=== PATIENT | female | born 1960 | race Caucasian/White ===

== ENCOUNTER 2019-11-09 12:59 | Emergency (ER) | payer BC, OTHER ==
[2019-11-09 13:14] VITALS: BP 142/82; PULSE 90; RESP 18; TEMP 99.1
[2019-11-09] MEDS ORDERED: IBUPROFEN 600 MG TAB PO STA (13:29)
--- NOTE | 2019-11-09 13:31 | ED ---
General Adult HPI - General Chief complaint: Extremity Injury, Upper Stated complaint: Left Arm Injury Time Seen by Provider: 11/09/19 13:25 Source: patient, RN notes reviewed Mode of arrival: ambulatory Limitations: no limitations - History of Present Illness Initial comments: 59-year-old female presents to the emergency department for left wrist pain. Patient states she was walking backwards yesterday when she tripped over a toy truck and fell onto her left wrist. States she has pain with movement of the left wrist. States it is swollen. States she has tried keeping it on ice but it does not seem to be helping. Patient denies any other injuries. She did not hit her head. Denies numbness or tingling in the hand.Patient has no other comp laints at this time including shortness of breath, chest pain, abdominal pain, nausea or vomiting, headache, or visual changes. - Related Data Allergies Allergy/AdvReac Type Severity Reaction Status Date / Time No Known Allergies Allergy Verified 11/09/19 13:14 Review of Systems ROS Statement: Those systems with pertinent positive or pertinent negative responses have been documented in the HPI. ROS Other: All systems not noted in ROS Statement are negative. Past Medical History Past Medical History: No Reported History History of Any Multi-Drug Resistant Organisms: None Reported Past Surgical History: No Surgical Hx Reported Past Psychological History: No Psychological Hx Reported Smoking Status: Never smoker Past Alcohol Use History: None Reported Past Drug Use History: None Reported General Exam Limitations: no limitations General appearance: alert, in no apparent distress Head exam: Present: atraumatic, normocephalic, normal inspection Eye exam: Present: normal appearance, PERRL, EOMI. Absent: scleral icterus, conjunctival injection ENT exam: Present: normal exam, mucous membranes moist Neck exam: Present: normal inspection. Absent: tenderness, meningismus, lymphadenopathy Respiratory exam: Present: normal lung sounds bilaterally. Absent: respiratory distress, wheezes, rales, rhonchi, stridor Cardiovascular Exam: Present: regular rate, normal rhythm, normal heart sounds. Absent: systolic murmur, diastolic murmur, rubs, gallop, clicks GI/Abdominal exam: Present: soft, normal bowel sounds. Absent: distended, tenderness, guarding, rebound, rigid Extremities exam: Present: normal capillary refill (Capillary refill less than 2 seconds in the left hand, radial pulse 2+.), joint swelling (Mild edema noted of the left wrist.), other (Sensation intact left upper extremity). Absent: normal inspection, full ROM (Patient has limited flex and and extension of the left wrist secondary to pain however mechanisms are intact.), tenderness, pedal edema, calf tenderness Neurological exam: Present: alert Course Vital Signs 11/09/19 13:11 Temperature 99.1 F Pulse Rate 90 Respiratory 18 Rate Blood Pressure 142/82 O2 Sat by Pulse 96 Oximetry Medical Decision Making - Medical Decision Making X-ray of the left wrist shows impacted distal radial fracture with chip fracture of the ulnar styloid. Could not exclude a hairline fracture of the scaphoid. Upon review of the films do not think there is any benefit in trying to reduce this to the emergency room. Patient was placed in a volar wrist sprain and will follow up with orthopedics. Referral given. Patient will be given Tylenol 3 for pain and will take Motrin as well. She'll return here for any worsening symptoms. Discussed twice therapy. Disposition Clinical Impression: Wrist fracture, left Disposition: HOME SELF-CARE Condition: Good Instructions (If sedation given, give patient instructions): Wrist Fracture in Adults (ED) Additional Instructions: Please take Motrin for pain. If pain is severe take Tylenol 3. Follow up with orthopedics on Sunday by calling for an appointment. Return here to the emergency room for any worsening symptoms. Is patient prescribed a controlled substance at d/c from ED?: No Referrals: Jimbo Palma DO [Primary Care Provider] - 1-2 days Edenilson Mancilla MD [Medical Doctor] - 1-2 days Time of Disposition: 14:33
--- NOTE | 2019-11-09 14:05 | XR ---
EXAMINATION TYPE: XR wrist complete LT DATE OF EXAM: 11/09/2019 COMPARISON: NONE HISTORY: Pain TECHNIQUE: Four views submitted. FINDINGS: There is diffuse osteopenia. There is an impacted fracture of the distal radius and chip fracture of the ulnar styloid. Could not exclude a hairline fracture of the scaphoid. IMPRESSION: 1. Impacted distal radial fracture 2. Chip fracture ulnar styloid. 3. Cannot exclude a hairline fracture of the scaphoid
[2019-11-09] MEDS ORDERED: ACET/COD 300 MG/30 MG STARTER PACK 6 TAB BTL PO STA (14:34)
== END 2019-11-09 15:06 | disposition home or self-care (01) ==
LOC: EC 12:59
DX: S52.502A Unspecified fracture of the lower end of left radius, initial encounter for closed fracture (principal); S52.612A Displaced fracture of left ulna styloid process, initial encounter for closed fracture; W01.0XXA Fall on same level from slipping, tripping and stumbling without subsequent striking against object, initial encounter; Y92.009 Unspecified place in unspecified non-institutional (private) residence as the place of occurrence of the external cause
CPT/HCPCS: 99283

== ENCOUNTER → 2019-11-12 | Outpatient (CLI) | payer SELFPAY ==
--- NOTE | 2019-11-12 13:29 | CT ---
EXAMINATION TYPE: CT wrist LT wo con DATE OF EXAM: 11/12/2019 COMPARISON: 11/09/2019 HISTORY: Left radius fracture. CT DLP: 229 mGycm Automated exposure control for dose reduction was used. CONTRAST: None TECHNIQUE: Axial images 3 mm thick sections. Reconstructed images in orthogonal planes. Three-D recon structed images are reviewed on the computer. FINDINGS: There is a comminuted fracture of the distal metaphyseal radius. There is a longitudinal segment exte nding through the articular surface. Ulnar styloid avulsion is noted No additional fractures are evident. Joint spaces are preserved. There is soft tissue prominence. IMPRESSION: 1. COMMINUTED FRACTURE DISTAL METAPHYSEAL RADIUS WITH INTRA-ARTICULAR EXTENSION. 2. ULNAR AVULSION.
== END | disposition home or self-care (01) ==
LOC: RADCTMAIN 12:28
PROVIDERS: ATTEND Orthopaedic Surgery
DX: S59.292A Other physeal fracture of lower end of radius, left arm, initial encounter for closed fracture (principal); S58.1 Traumatic amputation at level between elbow and wrist

== ENCOUNTER → 2021-05-05 | Outpatient (CLI) | payer OTHER ==
--- NOTE | 2021-05-05 10:10 | US ---
EXAMINATION TYPE: US abdomen complete DATE OF EXAM: 05/05/2021 COMPARISON: NONE CLINICAL HISTORY: N92.4 Excessive bleeding in premenopausal period. No symptoms EXAM MEASUREMENTS: Liver Length: 16.1 cm Gallbladder Wall: 0.2 cm CBD: 0.4 cm Spleen: 10.8 cm Right Kidney: 12.4 x 5.1 x 6.1 cm Left Kidney: 12.5 x 5.6 x 4.9 cm Pancreas: visualized portions wnl, limited by overlying midline bowel gas Liver: heterogeneous, increased attenuation, decreased visualization of vessels suggestive of fatty infiltrate Gallbladder: wnl Evidence for sonographic Johnson's sign: no CBD: visualized portions wnl, limited by overlying bowel gas Spleen: wnl Right Kidney: wnl Left Kidney: 1.4cm cyst lateral mid pole Upper IVC: wnl Abd Aorta: wnl The intrahepatic portion of the IVC and proximal abdominal aorta are within normal limits. There is no evidence of cholelithiasis. Common bile duct is unremarkable. The visualized portions of the bustamante creas are homogenous. The spleen is unremarkable. Kidneys are symmetric and free of hydronephrosis. IMPRESSION: 1. Hepatic steatosis. 2. Simple cyst left kidney.
--- NOTE | 2021-05-05 10:21 | US ---
EXAMINATION TYPE: US pelvic complete DATE OF EXAM: 05/05/2021 COMPARISON: NONE CLINICAL HISTORY: 61-year-old female N92.4 Excessive bleeding in premenopausal period. Post menopausa l bleeding, 4, para 3, miscarriage 1, history of D&C TECHNIQUE: Transabdominal sonographic images of the pelvis were acquired. Transvaginal sonographic i mages were medically necessary to better assess the following anatomy: endometrium and ovaries Date of LMP: 9 years ago FINDINGS: EXAM MEASUREMENTS: Uterus: 8.3 x 4.5 x 5.5 cm Endometrial Stripe: 1.1 cm Right Ovary: not seen Left Ovary: not seen 1. Uterus: Anteverted. The myometrium is heterogeneous with multiple hypoechoic lesions with largest measuring 1.4 x 1.0 x 1.2cm suggesting focal fibroids 2. Endometrium: thickening, cystic change seen within the uterine cavity. 3. Right Ovary: not seen 4. Left Ovary: not seen 5. Bilateral Adnexa: wnl 6. Posterior cul-de-sac: wnl IMPRESSION: 1. Thickened endometrial stripe up to 1.1 cm, abnormal in a postmenopausal female with bleeding. The stripe has a complex appearing with cystic change. Differential considerations include endometrial hy perplasia, polyps, or endometrial carcinoma. Further BIOCHEMISTRY TEACHER evaluation is recommended. 2. Scattered uterine fibroids measuring up to 1.4 cm. 3. Neither ovary could be visualized.
== END | disposition home or self-care (01) ==
LOC: RADUSWWP 08:49
PROVIDERS: ATTEND Family Medicine
DX: K76.0 Fatty (change of) liver, not elsewhere classified (principal); N28.1 Cyst of kidney, acquired
CPT/HCPCS: 76700; 76830; 76856

== ENCOUNTER → 2021-06-24 | Outpatient (CLI) | payer OTHER ==
[2021-06-25 14:29] LABS: Coronavirus SARS CoV-2 Not Detected (Not Detected)
== END | disposition home or self-care (01) ==
LOC: LABPAT 12:52
PROVIDERS: ATTEND Surgery Plastic and Reconstructive Surgery
DX: Z01.818 Encounter for other preprocedural examination (principal); Z20.828 Contact with and (suspected) exposure to other viral communicable diseases
CPT/HCPCS: U0003; U0005

== ENCOUNTER 2021-06-29 07:23 | Day surgery (SDC) | payer OTHER ==
[2021-06-27 16:17] VITALS: BMI 33.5
--- NOTE | 2021-06-29 04:21 | P.GSHP ---
History of Present Illness H&P Date: 06/29/21 CHIEF COMPLAINT: Colon screen HISTORY OF PRESENT ILLNESS: The patient is a 61-year-old female who presents for colon screen. Lower endoscopy was offered for further evaluation and management. PAST MEDICAL HISTORY: Please see list. PAST SURGICAL HISTORY: Please see list. MEDICATIONS: Please see list. ALLERGIES: Please see list. SOCIAL HISTORY: No illicit drug use FAMILY HISTORY: No reports of Crohn disease or ulcerative colitis. REVIEW OF ORGAN SYSTEMS: CONSTITUTIONAL: No reports of fevers or chills. PHYSICAL EXAM: VITAL SIGNS: Stable GENERAL: Well-developed pleasant in no acute distress. HEENT: No scleral icterus. Extraocular movements grossly intact. Moist buccal mucosa. NECK: Supple without lymphadenopathy. CHEST: Unlabored respirations. Equal bilateral excursions. CARDIOVASCULAR: Regular rate and rhythm. Distal 2+ pulses. ABDOMEN: Soft, nontender, nondistended. MUSCULOSKELETAL: No clubbing, cyanosis, or edema. ASSESSMENT: 1. Colon screen. PLAN: 1. Recommend proceeding with a lower endoscopy Past Medical History Past Medical History: Diabetes Mellitus, Hypertension History of Any Multi-Drug Resistant Organisms: None Reported Past Surgical History: No Surgical Hx Reported Additional Past Surgical History / Comment(s): D&C Past Anesthesia/Blood Transfusion Reactions: No Reported Reaction Past Psychological History: Anxiety Smoking Status: Never smoker Past Alcohol Use History: None Reported Past Drug Use History: None Reported Medications and Allergies Home Medications Medication Instructions Recorded Confirmed Type Lisinopril [Zestril] 10 mg PO DAILY 06/27/21 06/27/21 History Sertraline [Zoloft] 0 mg PO DAILY 06/27/21 06/27/21 History metFORMIN HCL 0 mg PO DAILY 06/27/21 06/27/21 History Allergies Allergy/AdvReac Type Severity Reaction Status Date / Time No Known Allergies Allergy Verified 06/27/21 16:07
[~2021-06-29 07:23] MED LIST: LIDOCAINE 1% (10MG/ML) FOR IV START INTRADERMA PRN
[2021-06-29 07:41] VITALS: TEMP 97.8
[2021-06-29] MEDS: LACTATED RINGERS 1,000 ML IV SCH ×2 (07:52→08:28)
[2021-06-29 07:55] LABS: Glucose,Whole Blood 146 mg/dL (75-99)
[2021-06-29] MEDS ORDERED: LIDOCAINE 1% INJ 10MG/ML (20 ML MDV) ONE (08:29)
[2021-06-29] MEDS ORDERED: PROPOFOL 10 MG/ML 20 ML VIAL IV ONE (08:29)
[2021-06-29 08:58] VITALS: BP 114/80; PULSE 75; RESP 18
--- NOTE | 2021-06-29 09:06 | P.PCN ---
Date of Procedure: 06/29/21 Description of Procedure: PREOPERATIVE DIAGNOSIS: Personal history of colon polyps Family history malignant colon polyps Colonoscopy screening POSTOPERATIVE DIAGNOSIS: Personal history of colon polyps Family history malignant colon polyps Colonoscopy screening Tubular adenoma cecum Tubular adenoma ascending colon Internal hemorrhoids, grade 2 OPERATION: Colonoscopy to the ileocecal valve and appendiceal orifice, cecum Colonoscopy with hot snare polypectomy SURGEON: Lala Martin MD. ANESTHESIA: MAC. INDICATIONS: The patient is an 61-year-old female who presents family history of malignant colon polyps and personal history of colon polyps. Last colonoscopy 5 years. Benefits and risks were described and informed consent was obtained. DESCRIPTION OF PROCEDURE: The patient had undergone Sutab prep. The patient had been brought into the operating room and laid in the left lateral decubitus position. After adequate intravenous sedation, the rectum was examined with 2% lidocaine jelly. External hemorrhoids were encountered. The rectal tone was within normal limits. No lesions were palpated in the rectal vault. An Olympus colonoscope was advanced until the cecum, ileocecal valve and appendiceal orifice were clearly viewed. The prep was excellent. No sigmoid diverticulosis was encountered. Colonic polyps were found and removed. No evidence of focal colitis was found. Retroflexion of the scope demonstrated grade 2 internal hemorrhoids without active bleeding or inflammation. The colon was desufflated. The patient had tolerated the procedure well. Withdrawal time was over 6 minutes. FINDINGS: Aronchick preparation quality scale 1 (1-5) Internal hemorrhoids, grade 2 External hemorrhoids, grade 2 No arteriovenous malformations. No sigmoid diverticulosis Removal of 2 polyps: - Snare polypectomy ascending colon, 5 mm tubulovillous adenoma polyp. - Snare polypectomy at cecum, 6 mm flat villous adenoma polyp. No focal colitis. RECOMMENDATIONS: Repeat colonoscopy in 3 years, 2024 Plan - Discharge Summary Discharge Rx Participant: No New Discharge Prescriptions: Continue Lisinopril [Zestril] 10 mg PO DAILY metFORMIN HCL 0 mg PO DAILY Sertraline [Zoloft] 0 mg PO DAILY Discharge Medication List Lisinopril [Zestril] 10 mg PO DAILY 06/27/21 [History] Sertraline [Zoloft] 0 mg PO DAILY 06/27/21 [History] metFORMIN HCL 0 mg PO DAILY 06/27/21 [History] Follow up Appointment(s)/Referral(s): Lala Martin MD [STAFF PHYSICIAN] - As Needed Patient Instructions/Handouts: *Surgery [facility] - (Anesthesia) Endoscopy Discharge Instructions, Colonoscopy (DC), Colorectal Polyps (DC) Activity/Diet/Wound Care/Special Instructions: Repeat colonoscopy 3 years, 2024 Discharge Disposition: HOME SELF-CARE
== END 2021-06-29 09:46 | disposition home or self-care (01) ==
LOC: ORWHC2ENDO 07:23
PROVIDERS: ATTEND Surgery Plastic and Reconstructive Surgery
DX: Z12.11 Encounter for screening for malignant neoplasm of colon (principal); Z80.0 Family history of malignant neoplasm of digestive organs; D12.2 Benign neoplasm of ascending colon; D12.0 Benign neoplasm of cecum; K64.1 Second degree hemorrhoids; K64.4 Residual hemorrhoidal skin tags; Z86.010 Personal history of colon polyps; E11.9 Type 2 diabetes mellitus without complications; I10 Essential (primary) hypertension; F41.9 Anxiety disorder, unspecified; Z79.84 Long term (current) use of oral hypoglycemic drugs; Z79.899 Other long term (current) drug therapy
CPT/HCPCS: 88305; 45385; J2001; J2704

== ENCOUNTER → 2022-09-04 | Outpatient (CLI) | payer OTHER ==
--- NOTE | 2022-09-05 19:24 | MM ---
Reason for Exam: Screening (asymptomatic). Last mammogram was performed 1 year(s) and 4 month(s) ago. Patient History: Menarche at age 14. First Full-Term at age 23. Postmenopausal. Patient has history of breast feeding. Hormonal Contraceptives for 14 years until age 43. Risk Values: Rebecca 5 year model risk: 1.3%. NCI Lifetime model risk: 6.6%. Prior Study Comparison: 07/14/2014 Right Diagnostic Mammogram, [facility]. 01/05/2016 Bilateral Screening Mammogram, [facility]. 05/20/2021 Bilateral Screening Mammogram, [facility]. Tissue Density: There are scattered fibroglandular densities. Findings: Analyzed By CAD. The 2 12:00 areas of focal asymmetry middle and posterior depth right breast remain unchanged especially when comparing back to the 2014 exam. There is no suspicious group of microcalcifications or new suspicious mass in either breast. Overall Assessment: Benign, BI-RAD 2 Management: Screening Mammogram of both breasts in 1 year. . Patient should continue monthly self-breast exams. A clinical breast exam by your physician is recommended on an annual basis. This exam should not preclude additional follow-up of suspicious palpable abnormalities. Note on Rebecca scores and lifetime risk: 1. A Rebecca score greater than 3% is considered moderate risk. If this is the case, consider specialist referral to assess eligibility for a risk reducing agent. 2. If overall lifetime risk for the development of breast cancer is 20% or higher, the patient may qualify for future screening with alternating mammogram and breast MRI. Electronically signed and approved by: Rashaun Lee M.D. Radiologist
== END | disposition home or self-care (01) ==
LOC: RADMAMWWP 14:45
PROVIDERS: ATTEND Family Medicine
DX: Z12.31 Encounter for screening mammogram for malignant neoplasm of breast (principal); Z78.0 Asymptomatic menopausal state
CPT/HCPCS: 77067